=== PATIENT | female | born 1940 | race Caucasian/White ===

== ENCOUNTER → 2017-05-19 | Day surgery (SDC) | payer MEDICARE, OTHER ==
[2017-05-15 13:32] LABS: BASOPHILS % 0.8 % (0.0-1.0); EOSINOPHILS # (AUTO) 0.1 (0.0-0.4); EOSINOPHILS % 1.8 % (0.0-6.0); HEMOGLOBIN 12.3 g/dL (12.0-16.0); LYMPHOCYTES # (AUTO) 1.5 (1.0-3.2); LYMPHOCYTES % 29.3 % (18.0-39.1); MEAN CORPUSCULAR HEMOGLOBIN 30.3 pg (28-32); MEAN CORPUSCULAR HGB CONC 33.2 g/dL (31-35); MEAN CORPUSCULAR VOLUME 91.1 fL (81-99); MONOCYTES # (AUTO) 0.4 (0.2-0.8); MONOCYTES % 8.1 % (4.4-11.3); NEUTROPHILS % 59.8 % (38.7-80.0); PLATELET COUNT 177 x10e3/uL (140-360); RED BLOOD COUNT 4.06 x10e6/uL (3.6-5.1); RED CELL DISTRIBUTION WIDTH 12.5 % (11.7-14.4)
[~2017-05-19] MED LIST: ACTONEL35 MG PO; BONIVA150 MG PO; BUPIVACAINE HCL 0.5% 10ML MPF VIAL INJ ONE; CEFAZOLIN SOD 1 GM VIAL ONE; ECOTRIN81 MG PO; ESIDRIX25 MG PO; FENTANYL CITRATE/PF 100MCG/2 ML INJ ONE; LIDOCAINE HCL 1% LOCAL INJ 20 ML VIAL ONE; LIDOCAINE HCL 2% LOCAL INJ 5 ML SDV VIAL INJ ONE; MUPIROCIN 2% OINT 22 GM TUBE ONE; OMEPRAZOLE40 MG PO; PREMARIN0.625 MG PO; PRINIVIL10 MG PO; PROPOFOL IV EMULSION 10 MG/ML 20 ML VIAL ONE; SIMVASTATIN40 MG PO
--- NOTE | 2017-05-19 09:00 | Operative Report ---
DATE OF PROCEDURE: May 19, 2017 PREOPERATIVE DIAGNOSIS: Osteoarthritis, left thumb. POSTOPERATIVE DIAGNOSES 1. Osteoarthritis, left thumb. 2. Mucous cyst and osteophyte formation. PROCEDURES 1. Excision of ganglion of left thumb interphalangeal joint. 2. Arthrotomy with removal of osteophyte, left thumb, distal interphalangeal joint. ANESTHESIA: MAC/local. HISTORY: The patient is a 76-year-old female with symptomatic osteoarthritis of the left thumb IP joint. She has cyst formation, as well as osteophyte formation. The risks, benefits and alternatives of treatment were discussed with the patient. She is prepared to undergo the procedures outlined. DETAILS OF PROCEDURE: Patient was marked preoperatively in the holding area. She was brought to the operating theater. After the induction of adequate MAC anesthesia and IV sedation, she was prepped and draped in a supine position. A time out was performed. A digital block was placed around the base of the left thumb utilizing a 50-50 mixture of 1% Xylocaine plain and 0.5% Marcaine plain. A total of 5 mL was used. After waiting an appropriate amount time for maximum anesthetic effect, a digital tourniquet was placed around the base of the left thumb. A curvilinear incision was marked out about the dorsum of the IP joint to encompass the cyst. The incision was made through the skin and subcutaneous tissues. Venous tributaries were controlled with the bipolar cautery. The cyst was identified in the immediate subcutaneous plane. It was then traced around the ulnar side of the extensor tendon to the level of the DIP joint. The cyst and its attachment to the joint capsule were removed in toto and sent for permanent pathologic examination. The rent in the joint capsule was enlarged and a large osteophyte was then excised utilizing a rongeur. After the osteophyte had been for rongeured smooth, the joint was irrigated with bacteriostatic saline and then closed with a 4-0 Vicryl in an interrupted fashion. The wound was irrigated once again and the skin was approximated with 5-0 nylon in an interrupted horizontal mattress fashion. Bactroban ointment, Xeroform gauze and a sterile dressing were applied. The tourniquet was removed from the base of the finger. The finger pinked up nicely. The patient was returned to the recovery room in satisfactory condition, and discharged with a postoperative instruction sheet, as well as a followup appointment. Job#: [id number]
== END | disposition home or self-care (01) ==
LOC: OR 07:03
PROVIDERS: ATTEND Plastic Surgery
DX: M19.042 Primary osteoarthritis, left hand (principal); M67.442 Ganglion, left hand; I10 Essential (primary) hypertension; I44.7 Left bundle-branch block, unspecified; K58.9 Irritable bowel syndrome, unspecified; K44.9 Diaphragmatic hernia without obstruction or gangrene; K21.9 Gastro-esophageal reflux disease without esophagitis; E78.5 Hyperlipidemia, unspecified; Z01.812 Encounter for preprocedural laboratory examination
CPT/HCPCS: 26160; 36415; 85025; 88304; J0690; J2001 ×2